=== PATIENT | male | born 1965 | race African-American/Black ===

== ENCOUNTER 2024-05-24 15:08 | Emergency (ER) | payer OTHER, SELFPAY ==
--- NOTE | ~2024-05-24 | XR_ITS ---
EXAMINATION: XR ABDOMEN KUB CLINICAL INDICATION: abd distension COMPARISON: None available. TECHNIQUE: AP supine views of the abdomen. FINDINGS: Mild stool throughout the colon. Nonobstructive bowel gas pattern. No abnormal soft tissue calcification. No acute osseous abnormality. XR/XR KUB IMPRESSION: Mild stool throughout the colon. Nonobstructive bowel gas pattern. Electronically signed by: Keo Marquis MD 05/24/2024 05:52 PM EST
[2024-05-24 15:23] VITALS: BP 114/73; BP 130/90; PULSE 72; PULSE 81; RESP 18; TEMP 36.9; O2SAT 98; BMI 31.7
--- NOTE | 2024-05-24 16:42 | ED.ABDPAIN ---
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 everything was stable no history of ascites Related Data Previous Rx's ?Medication ?Instructions ?Recorded polyethylene glycol 3350 17 17 g PO DAILY PRN constipation 05/24/24 gram/dose oral powder (Miralax) #238 grams Allergies Allergy/AdvReac Type Severity Reaction Status Date / Time erythromycin base AdvReac Hives Verified 05/24/24 15:29 [From Erythrocin] Review of Systems Review of Systems Yes all other systems are reviewed and are negative PMFSH Social History Social History Smoked in Last 30 Days: No Use of substances other than those prescribed or required for medical reasons: No Advance Directives: No Advance Directives Information Provided: No Do you have a plan to hurt others: No Plan Physical Exam ED Vital Signs: Vital Signs - 24 hr 05/24/24 15:23 05/24/24 18:38 05/24/24 19:10 Temperature 98.4 F 97.8 F 98.2 F Pulse Rate 72 70 75 Respiratory Rate 18 16 16 Blood Pressure 114/73 134/75 108/81 Pulse Oximetry 98 98 100 Oxygen Delivery Method Room Air Room Air Room Air 05/24/24 19:23 Temperature 98.2 F Pulse Rate 75 Respiratory Rate 16 Blood Pressure 108/81 Pulse Oximetry 98 Oxygen Delivery Method Room Air BMI result Body Mass Index 31.7 Appearance: Alert. Oriented X3. No acute distress. Eyes: PERRLA, No Nystagmus ENT: Pharynx normal. Oral Mucosa moist Neck: Normal inspection. Neck supple. CVS: Normal heart rate and rhythm. Pulses normal. Respiratory: No respiratory distress. Equal air entry bilateral, no wheezing/rales/rhonchi Abdomen: Soft and nontender gaseous distention. Bowel sounds are present, no mass palpable, no CVA tenderness Skin: Skin warm and dry. Normal skin color. Normal skin turgor. Extremities: No lower extremity edema. No calf tenderness Neuro: Oriented X 3. No motor deficit. Medical Decision Making Medical Decision Making [facility] Narrative: Patient with nonspecific abdominal pain no focal tenderness clinically with constipation liver enzymes are normal negative x-ray without signs of any obstruction will discharge patient home on stool softener Lab Data [facility] Lab Attestation statement: I reviewed the patient's lab results. 05/24/24 17:09 05/24/24 17:09 Labs: Lab Results 05/24/24 Range/Units 17:09 WBC 7.0 (4.8-10.8) X10*3/uL RBC 3.90 L (4.60-5.80) X10*6/uL Hgb 12.4 L (14.0-18.0) g/dl Hct 36.4 L (42.0-52.0) % MCV 93.3 (80.0-98.0) fL MCH 31.8 (27.0-33.0) pg MCHC 34.1 (31.0-36.0) g/dl RDW 11.8 (11.0-16.0) % Plt Count 205 (160-400) X10*3/uL MPV 9.5 (9.4-12.4) fL Immature Gran % (Auto) 0.6 H (0.0-0.4) % Neut % (Auto) 48.0 (45-73) % Lymph % (Auto) 40.3 H (20-40) % [place] % (Auto) 8.2 (2-11) % Eos % (Auto) 2.3 (0-4) % Baso % (Auto) 0.6 (0-2) % Lymph # (Auto) 2.8 (1.2-4.9) X10*3/uL [place] # (Auto) 0.6 (0.1-1.2) X10*3/uL Eos # (Auto) 0.2 (0.0-0.4) X10*3/uL Baso # (Auto) 0.0 (0.0-0.2) X10*3/uL Abs Immat Gran (auto) 0.04 H (0.00-0.03) X10*3/uL Absolute Neuts (auto) 3.4 (2.0-8.3) x10*3/uL Absolute Nucleated RBC 0.000 (0.0-0.012) X10*3/uL Nucleated RBC % (auto) 0.0 (0.0-0.2) /100WBC Sodium 140 (135-145) mmol/L Potassium 4.5 (3.3-5.1) mmol/L Chloride 104 (96-108) mmol/L Carbon Dioxide 31 H (22-29) mmol/L Anion Gap 10 L (12-20) BUN 13 (9-16) mg/dL Creatinine 1.11 (0.5-1.4) mg/dL Estim Creat Clear Calc 96.1 Estimated GFR > 60 Random Glucose 68 (60-115) mg/dL Calcium 9.4 (8.4-10.2) mg/dL Total Bilirubin 0.2 (0.0-1.0) mg/dL AST 49 H (5-37) U/L ALT 40 (0-40) U/L Alkaline Phosphatase 119 H (39-117) U/L Total Protein 7.3 (6.5-8.0) g/dL Albumin 3.8 (3.5-5.0) g/dL Lipase 31 (8-78) U/L Independent Interpretation I performed an independent interpretation of an: Plain X-Ray Radiology Impression Discussion of test interpretation with radiology: I have reviewed the radiologist's reading. Radiologist Impression: [place] [id number] XRay Report Signed Patient: Marcus Todd MR#: [id number] : 1965 Acct:[id number] Age/Sex: 58 / M ADM Date: 05/24/24 Loc: .ED Attending Dr: Ordering Physician: Nuno Fletcher MD Date of Service: 05/24/24 Procedure(s): XR KUB Accession Number(s): [id number] cc: Rebecca Pearson; Nuno Fletcher MD~ EXAMINATION: XR ABDOMEN KUB CLINICAL INDICATION: abd distension COMPARISON: None available. TECHNIQUE: AP supine views of the abdomen. FINDINGS: Mild stool throughout the colon. Nonobstructive bowel gas pattern. No abnormal soft tissue calcification. No acute osseous abnormality. XR/XR KUB IMPRESSION: Mild stool throughout the colon. Nonobstructive bowel gas pattern. Electronically signed by: Keo Marquis MD 05/24/2024 05:52 PM EST RP Medications Administered Discontinued Medications Generic Name Dose Route Start Last Admin Trade Name Freq PRN Reason Stop Dose Admin Magnesium Hydroxide 30 ml 05/24/24 18:30 05/24/24 19:15 Milk Of Magnesia 30 Ml Oral.Susp PO 05/24/24 18:31 30 ml NOW STA Administration Discharge Plan Discharge Clinical Impression: Constipation Patient Disposition: Home, Self-Care Instructions: Constipation (ED) Additional Instructions: Drink plenty of fluids Take stool softener as prescribed Follow up with the PCP if not better Prescriptions: New polyethylene glycol 3350 [Miralax] 17 gram/dose powder 17 g PO DAILY PRN (Reason: constipation) Qty: 238 0RF Interventions: ED Discharge Assessment Last Done: 05/24/24 19:23 Discharge Date/Time: 05/24/24 19:24 Print Language: Norwegian
[2024-05-24 17:14] LABS: MANUAL DIFF FLAG NO
[2024-05-24 17:16] LABS: Basophils Percent Auto 0.6 % (0-2); Eosinophils Absolute Auto 0.2 X10*3/uL (0.0-0.4); Eosinophils Percent Auto 2.3 % (0-4); Hematocrit 36.4 % (42.0-52.0); Hemoglobin 12.4 g/dl (14.0-18.0); Imm Gran Abs Auto 0.04 X10*3/uL (0.00-0.03); Imm Gran Pct Auto 0.6 % (0.0-0.4); Lymphocytes Absolute Auto 2.8 X10*3/uL (1.2-4.9); Lymphocytes Percent Auto 40.3 % (20-40); Mean Corpuscular HGB Conc 34.1 g/dl (31.0-36.0); Mean Corpuscular Hemoglobin 31.8 pg (27.0-33.0); Mean Corpuscular Volume 93.3 fL (80.0-98.0); Mean Platelet Volume 9.5 fL (9.4-12.4); Monocytes Absolute Auto 0.6 X10*3/uL (0.1-1.2); Monocytes Percent Auto 8.2 % (2-11); Neutrophils Absolute Auto 3.4 x10*3/uL (2.0-8.3); Platelet Count 205 X10*3/uL (160-400); Red Cell Distribution Width 11.8 % (11.0-16.0)
[2024-05-24 17:31] LABS: Alanine Aminotransferase 40 U/L (0-40); Albumin Level 3.8 g/dL (3.5-5.0); Alkaline Phosphatase 119 U/L (39-117); Anion Gap 10 (12-20); Aspartate Amino Transferase 49 U/L (5-37); Bilirubin Total 0.2 mg/dL (0.0-1.0); Blood Urea Nitrogen 13 mg/dL (9-16); Calcium 9.4 mg/dL (8.4-10.2); Carbon Dioxide 31 mmol/L (22-29); Chloride 104 mmol/L (96-108); Creatinine Clr Calc Pharmacy 96.1; Estimated Glomerular Filt Rate > 60; Glucose Random 68 mg/dL (60-115); Lipase 31 U/L (8-78); Potassium 4.5 mmol/L (3.3-5.1); Sodium 140 mmol/L (135-145); Total Protein 7.3 g/dL (6.5-8.0)
[2024-05-24 18:38] VITALS: BP 134/75; PULSE 70; RESP 16; TEMP 36.6; O2SAT 98
[2024-05-24 19:10] VITALS: BP 108/81; PULSE 75; RESP 16; TEMP 36.8; O2SAT 100
[2024-05-24] MEDS: Milk of Magnesia 30 ML ORAL.SUSP PO (19:15)
--- NOTE | 2024-05-24 19:20 | PC.NURSE ---
Took over for ZENA Jose, reviewed discharge instructions with pt. pt verbalized understanding, no sign of distress. Pt being returned by EMS.
[2024-05-24 19:23] VITALS: BP 108/81; PULSE 75; RESP 16; TEMP 36.8; O2SAT 98
== END 2024-05-24 19:24 | disposition home or self-care (01) ==
PROVIDERS: Emergency Provider Internal Medicine
DX: K59.00 Constipation, unspecified (principal); R10.2 Pelvic and perineal pain; R11.2 Nausea with vomiting, unspecified; Z79.899 Other long term (current) drug therapy
CPT/HCPCS: 36415; 74018; 80053; 83690; 85025; 99284